=== PATIENT | female | born 1990 | race Caucasian/White ===

== ENCOUNTER 2018-11-04 21:30 | Emergency (ER) | payer SELFPAY ==
[~2018-11-04] VITALS: Ht 160 cm; Wt 71.7 kg
[2018-11-04 21:45] VITALS: BP 124/76
--- NOTE | 2018-11-04 21:52 | NUR ---
VISION ACUITY: BOTH EYES- 20/20, LEFT EYE- 20/20, RIGHT EYE- 20/20
--- NOTE | 2018-11-04 21:55 | NUR ---
PT CAME TO ER FOR LEFT EYE PAIN X4 DAYS. LEFT EYE IS RED AND SWOLLEN. PAIN LEVEL 8/10, ACHING. DENIES INJURY OR TRAUMA. DENIES VISION PROBLEMS. NO FEVER. NKA. NO MED HX. SAFETY MEASURES IN PLACE. ERMD AT BEDSIDE.
--- NOTE | 2018-11-04 21:55 | NUR ---
PT AMBULATED TO BED 02 WITH STEADY GAIT. ACCOMPANIED BY AUNT.
--- NOTE | 2018-11-04 22:04 | NUR ---
Patient discharged with v/s stable. Written and verbal after care instructions given and explained. Pt educated to provide good hand hygiene and use ointment as prescribed for 7 days. Patient alert, oriented and verbalized understanding of instructions. Ambulatory with steady gait. All questions addressed prior to discharge. ID band removed. Patient advised to follow up with PMD. Rx of GENTAMICIN was given. Patient educated on indication of medication including possible reaction and side effects. Opportunity to ask questions provided and answered.
[2018-11-04 22:06] VITALS: BP 124/76
== END 2018-11-04 22:04 | disposition home or self-care (01) ==
LOC: MED 21:30
DX: H10.89 Other conjunctivitis (principal); B96.89 Other specified bacterial agents as the cause of diseases classified elsewhere
CPT/HCPCS: 99283